=== PATIENT | male | born 2000 | race African-American/Black ===

== ENCOUNTER 2024-09-01 23:01 | Emergency (ER) | payer OTHER ==
[~2024-09-01] VITALS: Ht 185.4 cm; Wt 86.2 kg
[2024-09-02] MEDS ORDERED: Ibuprofen 600 MG Tab PO ONE (00:40)
== END 2024-09-02 00:51 | disposition home or self-care (01) ==
LOC: ER 23:01
DX: R10.9 Unspecified abdominal pain (principal)
CPT/HCPCS: 99283; A9270